=== PATIENT | female | born 1930 | race Caucasian/White ===

== ENCOUNTER 2016-12-07 22:30 | Emergency (ER) | payer MEDICARE ==
[~2016-12-07] VITALS: Ht 149.9 cm; Wt 61.0 kg
[~2016-12-07 22:30] MED LIST: ASPI81TA82 PO; BRIM.2%O LEFT EYE; CIPR250T2 PO; DORZ1SOL2 LEFT EYE; GABA100C2 PO; LATA0.00 EACH EYE; OCUV PO; SYSTSOL7 EACH EYE; ULTR50TA PO; UMEC1INH INH; VITA100018 PO
[2016-12-07 22:47] VITALS: BP 161/89; PULSE 81; RESP 16; TEMP 97.8; O2SAT 98
[2016-12-07] MEDS ORDERED: SODIUM CHLOR 0.9% 1000 ML INJ 1,000 ML IV SCH (23:08)
--- NOTE | 2016-12-07 23:13 | PD ---
HPI Chief Complaint: Abdominal Pain Time Seen by Provider: 23:01 Travel History International Travel<30 days: No Contact w/Intl Traveler<30days: No Traveled to known affect area: No History of Present Illness HPI The patient is a 86-year-old female who presents emergency department for right flank pain. The patient developed right upper quadrant abdominal pain that radiates to the back approximately 5-6 hours prior to arrival. The pain is worse with palpation, however, is present at rest. The patient did complain of mild nausea, but denied any vomiting, diarrhea, or change in bowel habits. The patient's last bowel movement was this morning, normal per the patient's report. The patient does have a history of previous abdominal surgeries including cholecystectomy, hysterectomy, appendectomy, partial colectomy for diverticulitis. The patient denies any dysuria, frequency, urgency, or hematuria. The patient denies any known history of kidney stones. The patient denies any chest pain, shortness of breath, fever, chills, or sweats. Symptoms are moderate, no known alleviating or exacerbating factors. 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) Genitourinary: No Hepatitis: No Hiatal Hernia: No Immune Disorder: No Musculoskeletal: Yes (back pain low back) Neurologic: No Psychiatric: No Reproductive: Yes (hx of hysterectomy) Respiratory: Yes (copd) Thyroid Disease: No Past Surgical History Abdominal Surgery: Yes (cholecystectomy appendectomy) AICD: No Appendectomy: Yes Cholecystectomy: Yes Eye Surgery: Yes (cataract left eye) Gynecologic Surgery: Yes (hysterectomy) Hysterectomy: Yes Joint Replacement: No Pacemaker: No Social History Alcohol Use: Yes (occasional wine with company) Tobacco Use: No Substance Use: No Allergies-Medications (Allergen,Severity, Reaction): Coded Allergies: No Known Allergies (Unverified , 12/07/16) Reported Meds & Prescriptions Reported Meds & Active Scripts Active Tramadol (Tramadol HCl) 50 Mg Tab 50 Mg PO Q4H PRN Zofran (Ondansetron HCl) 4 Mg Tab 4 Mg PO Q6HR PRN Reported Systane Opth Drops (Polyethylene Glycol-Propylene Glycol Opth Drp) 0.4-0.3% Soln 1-2 Drop LEFT EYE PRN PRN Ocuvite (Multiple Vitamins W/ Minerals) 1 Tab 1 Tab PO DAILY Dorzolamide-Timolol Opth Drops 22.3-6.8 Mg/Ml Soln 1 Drop LEFT EYE BID Alphagan P Opth Drops (Brimonidine Tartrate) 0.15% Soln 1 Drop LEFT EYE BID Gabapentin 100 Mg Cap 100 Mg PO BID Aspirin 81 Mg Tabdr 81 Mg PO DAILY Tramadol (Tramadol HCl) 50 Mg Tab 50 Mg PO BID PRN Review of Systems Except as stated in HPI: all other systems reviewed are Neg General / Constitutional: No: Fever, Chills Cardiovascular: No: Chest Pain or Discomfort Respiratory: No: Shortness of Breath Gastrointestinal: Positive: Nausea, Abdominal Pain, No: Vomiting, Diarrhea, Constipation, Changes in Bowel Habits Genitourinary: No: Urgency, Frequency, Dysuria, Hematuria Skin: No Rash Physical Exam Narrative GENERAL: Awake, alert, 86-year-old female who appears her stated age and is in no acute respiratory distress. SKIN: Warm and dry. HEAD: Atraumatic. Normocephalic. EYES: No injection or drainage. No scleral icterus. ENT: No nasal bleeding or discharge. Mucous membranes pink and moist. NECK: Trachea midline. No JVD. CARDIOVASCULAR: Regular rate and rhythm. No murmur appreciated. RESPIRATORY: No accessory muscle use. Clear to auscultation. Breath sounds equal bilaterally. GASTROINTESTINAL: Abdomen soft, tender palpation epigastrium and right upper quadrant. Well-healed transverse surgical scar. Back: No CVA tenderness. MUSCULOSKELETAL: No obvious deformities. No clubbing. No cyanosis. No edema. NEUROLOGICAL: Awake and alert. No obvious cranial nerve deficits. Motor grossly within normal limits. Normal speech. PSYCHIATRIC: Appropriate mood and affect; insight and judgment normal. Data Data Last Documented VS Vital Signs Date Time Temp Pulse Resp B/P Pulse Ox O2 Delivery O2 Flow Rate FiO2 12/08/16 01:00 78 16 170/90 97 12/08/16 00:20 Room Air 12/07/16 22:47 97.8 Orders Complete Blood Count With Diff (12/07/16 23:08) Comprehensive Metabolic Panel (12/07/16 23:08) Lipase (12/07/16 23:08) Lactic Acid (12/07/16 23:08) Urinalysis - C+S If Indicated (12/07/16 23:08) Ct Abd/Pel W/O Iv Contrast (12/07/16 23:08) Iv Access Insert/Monitor (12/07/16 23:08) Ecg Monitoring (12/07/16 23:08) Oximetry (12/07/16 23:08) Morphine Inj (Morphine Inj) (12/07/16 23:15) Ondansetron Inj (Zofran Inj) (12/07/16 23:15) Sodium Chlor 0.9% 1000 Ml Inj (Ns 1000 M (12/07/16 23:08) Electrocardiogram (12/07/16 ) Labs Laboratory Tests Test 12/07/16 12/07/16 12/07/16 23:25 23:35 23:47 White Blood Count 6.9 TH/MM3 Red Blood Count 3.86 MIL/MM3 Hemoglobin 12.7 GM/DL Hematocrit 36.9 % Mean Corpuscular Volume 95.6 FL Mean Corpuscular Hemoglobin 32.9 PG Mean Corpuscular Hemoglobin 34.4 % Concent Red Cell Distribution Width 12.4 % Platelet Count 195 TH/MM3 Mean Platelet Volume 6.9 FL Neutrophils (%) (Auto) 46.1 % Lymphocytes (%) (Auto) 40.5 % Monocytes (%) (Auto) 9.0 % Eosinophils (%) (Auto) 3.4 % Basophils (%) (Auto) 1.0 % Neutrophils # (Auto) 3.2 TH/MM3 Lymphocytes # (Auto) 2.8 TH/MM3 Monocytes # (Auto) 0.6 TH/MM3 Eosinophils # (Auto) 0.2 TH/MM3 Basophils # (Auto) 0.1 TH/MM3 CBC Comment DIFF FINAL Differential Comment Urine Color YELLOW Urine Turbidity CLEAR Urine pH 7.0 Urine Specific [place] 1.015 Urine Protein NEG mg/dL Urine Glucose (UA) NEG mg/dL Urine Ketones NEG mg/dL Urine Occult Blood SMALL Urine Nitrite NEG Urine Bilirubin NEG Urine Leukocyte Esterase NEG Urine RBC 10-14 /hpf Urine WBC 0-2 /hpf Urine Squamous Epithelial 0-5 /hpf Cells Urine Bacteria NONE /hpf Microscopic Urinalysis Comment CULT NOT INDICATED Sodium Level 141 MEQ/L Potassium Level 3.8 MEQ/L Chloride Level 105 MEQ/L Carbon Dioxide Level 27.2 MEQ/L Anion Gap 9 MEQ/L Blood Urea Nitrogen 27 MG/DL Creatinine 0.92 MG/DL Estimat Glomerular Filtration 58 ML/MIN Rate Random Glucose 98 MG/DL Lactic Acid Level 0.9 mmol/L Calcium Level 8.7 MG/DL Total Bilirubin 0.4 MG/DL Aspartate Amino Transf 17 U/L (AST/SGOT) Alanine Aminotransferase 15 U/L (ALT/SGPT) Alkaline Phosphatase 86 U/L Total Protein 7.8 GM/DL Albumin 3.4 GM/DL Lipase 163 U/L MDM Medical Decision Making Medical Screen Exam Complete: Yes Emergency Medical Condition: Yes Medical Record Reviewed: Yes Differential Diagnosis Differential diagnosis includes diverticulitis, retained biliary stone, pancreatitis, pleural effusion, lower lobe pneumonia, pulmonary embolism, appendicitis, peptic ulcer disease, gastritis. Narrative Course IV was established, labs were drawn and sent, and the patient was placed on cardiac telemetry monitoring and continuous pulse oximetry monitoring. The patient was administered morphine, Zofran, and IV fluids. CT of the abdomen and pelvis was ordered. EKG was ordered and interpreted. The patient was signed out to Dr. Duran at midnight with CT and laboratory evaluation pending. Diagnosis Primary Impression: Abdominal pain of unknown etiology Scripts Tramadol 50 Mg Tab50 Mg PO Q4H PRN (PAIN) #30 TAB Ref 0 Prov:Leonel Duran MD 12/08/16 Ondansetron (Zofran)4 Mg Tab4 Mg PO Q6HR PRN (NAUSEA OR VOMITING) #21 TAB Ref 0 Prov:Leonel Duran MD 12/08/16 Condition: Stable Horace Ocampo MD Dec 07, 2016 23:13
[2016-12-07] MEDS ORDERED: GABA100C4 PO (23:14)
[2016-12-07] MEDS ORDERED: ASPI1TAB69 PO (23:14)
[2016-12-07] MEDS ORDERED: BRIM.15%O LEFT EYE (23:14)
[2016-12-07] MEDS ORDERED: SYSTSOL LEFT EYE (23:14)
[2016-12-07] MEDS ORDERED: TRAM50TA PO (23:14)
[2016-12-07] MEDS ORDERED: OCUVTAB PO (23:14)
[2016-12-07] MEDS ORDERED: DORZ2SOL15 LEFT EYE (23:14)
[2016-12-07] MEDS ORDERED: MORPHINE SULFATE 4 MG/ML INJ IV PUSH ONE (23:15)
[2016-12-07] MEDS ORDERED: ONDANSETRON HCL 4 MG/2 ML VIAL IVP ONE (23:15)
[2016-12-07 23:35] LABS: AUTOMATED NEUTROPHIL # 3.2 TH/MM3 (1.8-7.7); BASOPHIL # 0.1 TH/MM3 (0-0.2); EOSINOPHIL # 0.2 TH/MM3 (0-0.4); EOSINOPHIL % 3.4 % (0.0-4.0); HEMATOCRIT 36.9 % (35.0-46.0); HEMO FLAGS DIFF FINAL; LYMPH % 40.5 % (9.0-44.0); LYMPHOCYTE # 2.8 TH/MM3 (1.0-4.8); MEAN CELL VOLUME 95.6 FL (80.0-100.0); MEAN CORPUSCULAR HEMOGLOBIN 32.9 PG (27.0-34.0); MEAN CORPUSCULAR HGB CONC 34.4 % (32.0-36.0); NEUT % 46.1 % (16.0-70.0); PLATELET COUNT 195 TH/MM3 (150-450); RED BLOOD COUNT 3.86 MIL/MM3 (4.00-5.30); RED CELL DISTRIBUTION WIDTH 12.4 % (11.6-17.2); WHITE BLOOD COUNT 6.9 TH/MM3 (4.0-11.0)
[2016-12-07 23:49] LABS: BLOOD, URINE SMALL (NEG); GLUCOSE,URINE NEG (NEG); KETONE, URINE NEG (NEG); NITRITE,URINE NEG (NEG)
[2016-12-07 23:58] LABS: COMMENT (UR) CULT NOT INDICATED; CULTURE IF INDICATED CULT NOT INDICATED; SQUAMOUS EPITHELIAL CELL URINE 0-5 /hpf (0-5); URINE COLOR YELLOW (YELLW/STRAW); WBC, URINE 0-2 /hpf (0-5)
--- NOTE | 2016-12-08 | RADHPO ---
EXAM DATE/TIME: 12/07/2016 23:25 [facility] COMPARISON: No previous studies available for comparison. INDICATIONS : Right upper quadrant abdomen pain. ORAL CONTRAST: No oral contrast ingested. RADIATION DOSE: 14.66 CTDIvol (mGy) MEDICAL HISTORY : Gastroesophageal reflux disease. Diverticulitis. Fistula. SURGICAL HISTORY : Cholecystectomy. Appendectomy.Hysterectomy.Colectomy. ENCOUNTER: Initial ACUITY: 3 weeks PAIN SCALE: 7/10 LOCATION: Right upper quadrant abdomen TECHNIQUE: Volumetric scanning of the abdomen and pelvis was performed. Using automated exposure control and ad justment of the mA and/or kV according to patient size, radiation dose was kept as low as reasonably achievable to obtain optimal diagnostic quality images. FINDINGS: Lung bases demonstrate mild bolus emphysema and some dependent atelectasis. No effusion. No acute findings in the liver, spleen, adrenals or pancreas. Previous cholecystectomy. No hydronephrosis. Left renal cyst present. 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 Multiple mild endplate compression deformities present at every level of the elizabeth mbar spine probably related to osteoporosis. There is focal severe central canal stenosis at L4-5. No bowel obstruction. No free air or free fluid. CONCLUSION: 1. No acute findings within the abdomen and pelvis. Previous cholecystectomy without biliary ductal d ilatation. 2. Multiple mild endplate compression deformities at every level of the lumbar spine probably related to osteoporosis with focal severe central canal stenosis at L4-5. 3. 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 Denis Guillen MD on December 07, 2016 at 23:47 Board Certified Radiologist. This report was verified electronically.
[2016-12-08 00:05] LABS: CHLORIDE 105 MEQ/L (98-107); POTASSIUM 3.8 MEQ/L (3.5-5.1); SODIUM (NA) 141 MEQ/L (136-145)
[2016-12-08 00:09] LABS: ANION GAP 9 MEQ/L (5-15); BICARBONATE 27.2 MEQ/L (21.0-32.0); BLOOD UREA NITROGEN 27 MG/DL (7-18)
[2016-12-08 00:12] LABS: ALT (GPT) 15 U/L (10-53); AST (GOT) 17 U/L (15-37); GLOMERULAR FILTRATION RATE 58 ML/MIN (>89)
[2016-12-08 00:14] LABS: TOTAL BILIRUBIN ADULT 0.4 MG/DL (0.2-1.0)
[2016-12-08 00:15] LABS: ALKALINE PHOSPHATASE 86 U/L (45-117)
[2016-12-08 00:20] VITALS: PULSE 75; RESP 18; O2SAT 97
--- NOTE | 2016-12-08 00:26 | PD ---
Physical Exam Time Seen by Provider: 00:[address] Ocampo left this patient with me to check the results of the CT abdomen/ pelvis without contrast and lab work and make a disposition. Data Data Last Documented VS Vital Signs Date Time Temp Pulse Resp B/P Pulse Ox O2 Delivery O2 Flow Rate FiO2 12/07/16 22:47 97.8 81 16 161/89 98 Orders Complete Blood Count With Diff (12/07/16 23:08) Comprehensive Metabolic Panel (12/07/16 23:08) Lipase (12/07/16 23:08) Lactic Acid (12/07/16 23:08) Urinalysis - C+S If Indicated (12/07/16 23:08) Ct Abd/Pel W/O Iv Contrast (12/07/16 23:08) Iv Access Insert/Monitor (12/07/16 23:08) Ecg Monitoring (12/07/16 23:08) Oximetry (12/07/16 23:08) Morphine Inj (Morphine Inj) (12/07/16 23:15) Ondansetron Inj (Zofran Inj) (12/07/16 23:15) Sodium Chlor 0.9% 1000 Ml Inj (Ns 1000 M (12/07/16 23:08) Electrocardiogram (12/07/16 ) Labs Laboratory Tests Test 12/07/16 12/07/16 12/07/16 23:25 23:35 23:47 White Blood Count 6.9 TH/MM3 Red Blood Count 3.86 MIL/MM3 Hemoglobin 12.7 GM/DL Hematocrit 36.9 % Mean Corpuscular Volume 95.6 FL Mean Corpuscular Hemoglobin 32.9 PG Mean Corpuscular Hemoglobin 34.4 % Concent Red Cell Distribution Width 12.4 % Platelet Count 195 TH/MM3 Mean Platelet Volume 6.9 FL Neutrophils (%) (Auto) 46.1 % Lymphocytes (%) (Auto) 40.5 % Monocytes (%) (Auto) 9.0 % Eosinophils (%) (Auto) 3.4 % Basophils (%) (Auto) 1.0 % Neutrophils # (Auto) 3.2 TH/MM3 Lymphocytes # (Auto) 2.8 TH/MM3 Monocytes # (Auto) 0.6 TH/MM3 Eosinophils # (Auto) 0.2 TH/MM3 Basophils # (Auto) 0.1 TH/MM3 CBC Comment DIFF FINAL Differential Comment Urine Color YELLOW Urine Turbidity CLEAR Urine pH 7.0 Urine Specific [place] 1.015 Urine Protein NEG mg/dL Urine Glucose (UA) NEG mg/dL Urine Ketones NEG mg/dL Urine Occult Blood SMALL Urine Nitrite NEG Urine Bilirubin NEG Urine Leukocyte Esterase NEG Urine RBC 10-14 /hpf Urine WBC 0-2 /hpf Urine Squamous Epithelial 0-5 /hpf Cells Urine Bacteria NONE /hpf Microscopic Urinalysis Comment CULT NOT INDICATED Sodium Level 141 MEQ/L Potassium Level 3.8 MEQ/L Chloride Level 105 MEQ/L Carbon Dioxide Level 27.2 MEQ/L Anion Gap 9 MEQ/L Blood Urea Nitrogen 27 MG/DL Creatinine 0.92 MG/DL Estimat Glomerular Filtration 58 ML/MIN Rate Random Glucose 98 MG/DL Lactic Acid Level 0.9 mmol/L Calcium Level 8.7 MG/DL Total Bilirubin 0.4 MG/DL Aspartate Amino Transf 17 U/L (AST/SGOT) Alanine Aminotransferase 15 U/L (ALT/SGPT) Alkaline Phosphatase 86 U/L Total Protein 7.8 GM/DL Albumin 3.4 GM/DL Lipase 163 U/L [facility] Medical Record Reviewed: Yes Supervised Visit with SHAQUILLE: Yes Interpretation(s) The CT abdomen/pelvis without IV contrast shows no acute findings within the abdomen/pelvis. Incidental findings are multiple mild endplate compression deformities at every level and osteoporosis with focal severe central canal stenosis at L4-5. 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 The CBC is unremarkable. The urine shows small occult blood, 10-14 red cells but is otherwise normal and culture is not indicated. The complete metabolic profile shows a BUN of 27, GFR 58 but is otherwise normal. The lipase is normal. The lactic acid is normal. Differential Diagnosis Pancreatitis, urinary stone, urinary tract infection, ulcer pain, diverticulitis in removed section of colon that was not removed. Narrative Course The patient has abdominal pain etiology undetermined. She did not have any tenderness on the lumbar spine when I palpated it. The aneurysm is small and on the left side and is unlikely to cause her type of pain. She does not have any urinary symptoms. She does have some blood in the urine but no evidence of any stone. She has both right sided pain and nausea. Plan: The patient will follow-up with her primary care physician and I will write her tramadol for pain as well as Zofran for nausea. Diagnosis Primary Impression: Abdominal pain of unknown etiology Additional Instruction: Follow-up with her primary care physician. I gave you the results of the CT reading and explained them. You will need to repeat the urine to make sure that the blood in the urine clears up. This should be done at your primary care physician's office. Med/Other Pt SpecificInfo: Prescription(s) given Scripts Tramadol 50 Mg Tab50 Mg PO Q4H PRN (PAIN) #30 TAB Ref 0 Prov:Leonel Duran MD 12/08/16 Ondansetron (Zofran)4 Mg Tab4 Mg PO Q6HR PRN (NAUSEA OR VOMITING) #21 TAB Ref 0 Prov:Leonel Duran MD 12/08/16 Disposition: 01 DISCHARGE HOME Condition: Stable Leonel Duran MD Dec 08, 2016 00:26
[2016-12-08] MEDS ORDERED: TRAM50TA PO (00:32)
[2016-12-08] MEDS ORDERED: ZOFR4TAB PO (00:32)
[2016-12-08 01:00] VITALS: BP 170/90
--- NOTE | 2016-12-08 23:45 | EKG ---
Date Performed: 12/07/2016 Time Performed: 23:59:42 PTAGE: 86 years EKG: Sinus rhythm Normal ECG PREVIOUS TRACING : 07/15/2016 05.11 Compared to prior tracing no significant change DOCTOR: Tarik Marino Interpretating Date/Time 12/08/2016 23:44:29
== END 2016-12-08 01:05 | disposition home or self-care (01) ==
LOC: PHED 22:30
DX: R10.11 Right upper quadrant pain (principal); J44.9 Chronic obstructive pulmonary disease, unspecified; R31.9 Hematuria, unspecified
CPT/HCPCS: 74176; 80053; 81001; 83605; 83690; 85025; 93005; 96361; 96374; 96375; 99284; J2270; J2405; J7030

== ENCOUNTER 2017-12-21 06:31 | Emergency (ER) | payer MEDICARE ==
[~2017-12-21] VITALS: Ht 157.5 cm; Wt 77.0 kg
[~2017-12-21 06:31] MED LIST changes: +ASPI1TAB69 PO; -ASPI81TA82 PO; +BRIM.15%O LEFT EYE; -BRIM.2%O LEFT EYE; -CIPR250T2 PO; -DORZ1SOL2 LEFT EYE; +DORZ2SOL15 LEFT EYE; -GABA100C2 PO; +GABA100C4 PO; -LATA0.00 EACH EYE; -OCUV PO; +OCUVTAB PO; +SYSTSOL LEFT EYE; -SYSTSOL7 EACH EYE; +TRAM50TA PO; -ULTR50TA PO; -UMEC1INH INH; -VITA100018 PO; +ZOFR4TAB PO
[2017-12-21 06:42] VITALS: BP 160/76; PULSE 60; RESP 18; TEMP 98.3; O2SAT 99
[2017-12-21] MEDS ORDERED: HYDR-3580 (06:47)
[2017-12-21] MEDS ORDERED: ASPI-516 CHEW (06:47)
--- NOTE | 2017-12-21 07:25 | PD ---
HPI Chief Complaint: Fall Time Seen by Provider: 07:23 Travel History International Travel<30 days: No Contact w/Intl Traveler<30days: No Traveled to known affect area: No History of Present Illness HPI The patient was seen and examined in the presence of the nurse. This patient complains of left shoulder pain. Duration 3 hours. She was getting out of bed and fell and landed on her left shoulder. She has pain of moderate severity which is worse with movement. She did not strike her head. No head or neck pain or LOC. 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) Genitourinary: No Hepatitis: No Hiatal Hernia: No Hypertension: No Immune Disorder: No Musculoskeletal: Yes (back pain low back) Neurologic: No Psychiatric: No Reproductive: Yes (hx of hysterectomy) Respiratory: Yes (copd) Thyroid Disease: No Tetanus Vaccination: < 5 Years Influenza Vaccination: Yes Past Surgical History Abdominal Surgery: Yes (cholecystectomy appendectomy) AICD: No Appendectomy: Yes Cholecystectomy: Yes Eye Surgery: Yes (cataract left eye) Gynecologic Surgery: Yes (hysterectomy) Hysterectomy: Yes Joint Replacement: No Pacemaker: No Other Surgery: Yes Social History Alcohol Use: Yes (occasional wine with company) Tobacco Use: No (QUIT SMOKE 16 YEARS AGO) Substance Use: No Allergies-Medications (Allergen,Severity, Reaction): Coded Allergies: No Known Allergies (Verified Adverse Reaction, Unknown, 12/21/17) Reported Meds & Prescriptions Reported Meds & Active Scripts Active Reported Hydrocodone-Acetamin 7.5-325 (Hydrocodone/Acetaminophen) 7.5 Mg-325 Mg Tablet Aspirin 81 Mg Chew 81 Mg CHEW DAILY Gabapentin 100 Mg Cap 100 Mg PO BID Review of Systems General / Constitutional: No: Fever HENT: No: Headaches Cardiovascular: No: Chest Pain or Discomfort Respiratory: No: Cough Physical Exam Narrative GENERAL: Well-nourished, well-developed patient in no apparent distress. SKIN: Focused skin assessment reveals no rash and nodules. Skin is Warm and dry. HEAD: Atraumatic. Normocephalic. EYES: Pupils equal and round. No scleral icterus. No injection or drainage. ENT: No nasal bleeding or discharge. Mucous membranes pink and moist. NECK: Trachea midline. No JVD. CARDIOVASCULAR: Regular rate and rhythm. No murmur appreciated. RESPIRATORY: No accessory muscle use. Clear to auscultation. Breath sounds equal bilaterally. GASTROINTESTINAL: Abdomen soft, non-tender, nondistended. Hepatic and splenic margins not palpable. MUSCULOSKELETAL: No obvious deformities. No clubbing. No cyanosis. No edema. Has a bit of pain and crepitus at the left humeral head. No open wound or bruising. Arm is neurovascularly intact NEUROLOGICAL: Awake and alert. No obvious cranial nerve deficits. Motor grossly within normal limits. Normal speech. PSYCHIATRIC: Appropriate mood and affect; insight and judgment normal. Data Data Last Documented VS Vital Signs Date Time Temp Pulse Resp B/P (MAP) Pulse Ox O2 Delivery O2 Flow Rate FiO2 12/21/17 07:02 16 12/21/17 06:42 98.3 60 160/76 (104) 99 Orders Orders Shoulder, Limited(2vws) (12/21/17 ) Splint Or Brace Apply/Monitor (12/21/17 09:43) [facility] Medical Decision Making Medical Screen Exam Complete: Yes Emergency Medical Condition: Yes Medical Record Reviewed: Yes Differential Diagnosis Humerus fracture, shoulder dislocation, contusion Narrative Course I have reviewed the patient's electronic medical record. I reviewed her left shoulder x-rays which show a proximal humerus fracture I reviewed with orthopedist who recommended sling and outpatient follow-up I wrote her some Percocet. She should ice it Diagnosis Primary Impression: Humerus surgical neck fracture Qualified Codes: S42.222A - 2-part displaced fracture of surgical neck of left humerus, initial encounter for closed fracture Additional Instructions: Wear sling Ice the left shoulder Follow-up with orthopedist The patient was warned about potential sedation for the medications they will receive on prescription. Med/Other Pt SpecificInfo: Prescription(s) given Scripts Oxycodone-Acetaminophen (Percocet) 5-325 mg Tab 1 TAB PO Q6H Y for PAIN, #25 TAB 0 Refills Prov: Garrett Bautista MD 12/21/17 Disposition: 01 DISCHARGE HOME Condition: Stable Garrett Bautista MD Dec 21, 2017 07:25
--- NOTE | 2017-12-21 07:52 | RADRPT ---
EXAM DATE/TIME: 12/21/2017 07:29 [facility] COMPARISON: No previous studies available for comparison. INDICATIONS : Left shoulder pain; fall today. MEDICAL HISTORY : None. SURGICAL HISTORY : None. ENCOUNTER: Initial ACUITY: 1 day PAIN SCORE: 10/10 LOCATION: Left shoulder. FINDINGS: Slightly impacted fracture of the left humeral. Glenohumeral relationship is grossly anatomic. Visual ized left lung is clear. Remaining osseous structures are intact. CONCLUSION: 1. Left humeral neck fracture. Ko Lewis MD on December 21, 2017 at 7:49 Board Certified Radiologist. This report was verified electronically.
[2017-12-21] MEDS ORDERED: PERC5TAB12 PO (09:46)
[2017-12-21 10:11] VITALS: BP 160/73; PULSE 97; RESP 18; O2SAT 95
[2017-12-21] MEDS ORDERED: oxyCODONE/ACETAMINOPHEN 5 MG/325 MG TAB PO ONE (10:15)
== END 2017-12-21 11:12 | disposition home or self-care (01) ==
LOC: PHED 06:31
DX: S42.222A 2-part displaced fracture of surgical neck of left humerus, initial encounter for closed fracture (principal); J44.9 Chronic obstructive pulmonary disease, unspecified; E11.9 Type 2 diabetes mellitus without complications; W06.XXXA Fall from bed, initial encounter; Y92.003 Bedroom of unspecified non-institutional (private) residence as the place of occurrence of the external cause
CPT/HCPCS: 73030; 99283